=== PATIENT | female | born 2000 | race Hispanic/Latino ===

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

== ENCOUNTER 2020-11-13 02:52 | Emergency (ER) | payer MEDICAID ==
[2020-11-13] MEDS ORDERED: ACETAMINOPHEN 325 MG TAB PO PRN (04:02)
[2020-11-13] MEDS ORDERED: MAGNESIUM HYDROXIDE (MOM) ORAL LIQD UDC PO PRN (04:02)
[2020-11-13] MEDS ORDERED: ALUM-MAG HYDROXIDE-SIMETHICONE 200-200-20MG/5ML ORAL LIQD 30 ML PO PRN (04:02)
[2020-11-13] MEDS ORDERED: traZODone 50 MG TAB PO ONE (04:04)
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
[2020-11-13 04:16] LABS: Bilirubin,Urine NEG (Negative); Blood,Urine NEG (Negative); Color,Urine Yellow (Yellow); Mucus,Urine 1+ /HPF; Protein,Urine <15 mg/dL mg/dL (Negative); Urobilinogen,Urine < 2.0 mg/dL (<2.0)
[2020-11-13 04:22] LABS: Amphetamine Screen,Urine Negative; Cocaine Screen,Urine Negative; Methadone Screen,Urine Negative; Opiate Screen,Urine Negative
[2020-11-13 04:43] LABS: Basophils # (Auto) 0.1 K/mm3 (0.0-0.1); Basophils % (Auto) 0.6 % (0.0-1.8); Eosinophils # (Auto) 0.1 K/mm3 (0.0-0.4); Eosinophils % (Auto) 1.1 % (0.0-4.3); Hematocrit 37.7 % (30.3-42.9); Hemoglobin 12.8 gm/dl (10.1-14.3); Lymphocytes # (Auto) 3.1 K/mm3 (1.2-5.4); Lymphocytes % (Auto) 31.8 % (13.4-35.0); Mean Corpuscular HGB Conc 34 % (30-34); Mean Corpuscular Volume 86 fl (79-97); Monocytes % (Auto) 10.6 % (0.0-7.3); Platelet Count 233 K/mm3 (140-440); Red Blood Count 4.39 M/mm3 (3.65-5.03)
[2020-11-13 04:49] LABS: Benzodiazepines Screen,Urine Positive; Cannabinoid Screen,Urine Positive
[2020-11-13 05:01] LABS: Blood Urea Nitrogen 12 mg/dL (7-17); Calcium 8.6 mg/dL (8.4-10.2); Hemolysis Index 0
[2020-11-13 05:02] LABS: BUN/Creatinine Ratio 24
[2020-11-13 07:43] VITALS: BP 104/64
--- NOTE | 2020-11-13 07:49 | Consultation ---
History of Present Illness - Reason for Consult Consult date: 11/13/20 Reason for consult: SI - History of Present Psychiatric Illness Omayra Schulz is a 19y/o female patient who states she feels like she is going crazy. She says she's suicidal and want's to drown herself. The patient says she does "meth, crack, cocaine and weed. pretty much all of her life." She also verbalizes hearing voices telling her that she's "no good, people are out to get her, and do things to myself." She says she does not sleep well. She denies being on any psych medications. PAST PSYCHIATRIC HISTORY: Diagnoses: Depression Suicide attempts or Self-harm behavior: Yes Prior psychiatric hospitalizations: Denies Substance Abuse history: meth, crack, cocaine, THC Previous psychiatric medications tried: valium Outpatient treatment: yes PAST MEDICAL HISTORY: None reported or document Family Psychiatric History: None reported or documented SOCIAL HISTORY Marital Status: Single Living Arrangements: with a roommate Employment Status: Employed Access to guns/weapons: denies Education: History of Abuse: denies Legal History: denies REVIEW OF SYSTEMS Constitutional: Negative for weight loss ENT: Negative for stridor Respiratory: Negative for cough or hemoptysis All other systems reviewed and are negative MENTAL STATUS EXAMINATION General Appearance and Behavior: Age appropriate, good hygiene, wearing appropriate clothes, calm and cooperative polite with questioning. Cooperation: engaged Psychomotor Behavior: Psychomotor normal Mood: "depressed" Affect and affective range: congruent with stated mood Thought Process: goal directed Thought Content: depression, SI, hallucinations Speech: Normal volume, Regular rate and rhythm, Suicidal Ideation: Yes Homicidal Ideation: Denies Hallucinations: Auditory Delusions: None elicited Impulse Control: Unimpaired Insight and Judgment: Limited insight and poor judgment Memory: Limited Attention: attentive Orientation: alert and oriented Assessment and Plan (1) Major Depressive Disorder Current Visit: Yes Status: Acute Treatment Plan 1013 Seroquel 25mg po BID Zoloft 25mg po daily medical: per primary Disposition: Recommend acute psychiatric inpatient treatment Will follow. Thanks Case staffed with Dr. Chung Medications and Allergies Allergies Allergy/AdvReac Type Severity Reaction Status Date / Time No Known Allergies Allergy Verified 11/13/20 03:40 Home Medications Medication Instructions Recorded Confirmed Last Taken Type Brompheniramine/Pseudoephed/Dm 10 ml PO Q12H PRN #100 ml 04/15/15 Unknown Rx [Bromfed Dm Cough Syrup] Fluticasone [Flonase] 1 spray NS QDAY #1 bottle 04/15/15 Unknown Rx Diphenhydramine HCl [Benadryl GEL] 118 ml TP TID #1 gel..ml. 05/18/15 Unknown Rx Ibuprofen [Motrin 600 MG tab] 600 mg PO Q8H PRN #30 tablet 06/21/16 Unknown Rx cephALEXin [Keflex] 500 mg PO BID #20 capsule 06/21/16 Unknown Rx Active Meds: Active Medications Acetaminophen (Acetaminophen 325 Mg Tab) 650 mg PO Q4HR PRN PRN Reason: Pain MILD(1-3)/Fever >100.5/ARMANDO Al Hydrox/Mg Hydrox/Simethicone (Alum-Mag Hydroxide-Simethicone [phone]/5ml Oral Liqd 30 Ml) 30 ml PO Q4HR PRN PRN Reason: Indigestion Magnesium Hydroxide (Magnesium Hydroxide (Mom) Oral Liqd Udc) 30 ml PO Q12HR PRN PRN Reason: Constipation Mental Status Exam - Vital signs Last Vital Signs Temp 97.9 F 11/13/20 07:40 Pulse 82 11/13/20 07:40 Resp 18 11/13/20 07:40 BP 104/64 11/13/20 07:40 Pulse Ox 100 11/13/20 07:40 Results Result Diagrams: 11/13/20 04:13 11/13/20 04:13 Abnormal lab results 11/13/20 11/13/20 11/13/20 Range/Units 04:13 04:13 04:13 [place] % (Auto) 10.6 H (0.0-7.3) % [place] # (Auto) 1.0 H (0.0-0.8) K/mm3 Creatinine 0.5 L (0.6-1.2) mg/dL Salicylates < 0.3 L (2.8-20.0) mg/dL Acetaminophen (10.0-30.0) ug/mL 11/13/20 Range/Units 04:13 [place] % (Auto) (0.0-7.3) % [place] # (Auto) (0.0-0.8) K/mm3 Creatinine (0.6-1.2) mg/dL Salicylates (2.8-20.0) mg/dL Acetaminophen 5.0 L (10.0-30.0) ug/mL All other labs normal.
[2020-11-13] MEDS ORDERED: SERTRALINE 25 MG TAB PO SCH (10:00)
[2020-11-13] MEDS ORDERED: QUEtiapine 25 MG TAB PO SCH (10:00)
== END 2020-11-13 12:39 ==
LOC: ED 02:52
DX: F32.9 Major depressive disorder, single episode, unspecified (principal); R45.851 Suicidal ideations; Z20.822 Contact with and (suspected) exposure to COVID-19; F10.20 Alcohol dependence, uncomplicated; F12.929 Cannabis use, unspecified with intoxication, unspecified
CPT/HCPCS: 36415; 80048; 80307; 81001; 84703; 85025; 99285; U0003; 80320; G0480

== ENCOUNTER 2020-12-26 14:59 | Emergency (ER) | payer MEDICAID ==
--- NOTE | 2020-12-26 15:54 | Event Note ---
ED Screening Note Date of service: 12/26/20 Time: 15:53 ED Screening Note: Patient brought in by boyfriend for medical clearance for anchor Boyfriend is not present during exam Patient is nonverbal and unable to give any information This initial assessment/diagnostic orders/clinical plan/treatment(s) is/are subject to change based on patients health status, clinical progression and re- assessment by fellow clinical providers in the ED. Further treatment and workup at subsequent clinical providers discretion. Patient/guardian urged not to elope from the ED as their condition may be serious if not clinically assessed and managed. Initial orders include: Labs
[2020-12-26 16:39] LABS: Basophils % (Auto) 0.3 % (0.0-1.8); Hematocrit 38.5 % (30.3-42.9); Hemoglobin 13.2 gm/dl (10.1-14.3); Lymphocytes # (Auto) 2.1 K/mm3 (1.2-5.4); Mean Corpuscular HGB Conc 34 % (30-34); Mean Corpuscular Volume 85 fl (79-97); Monocytes # (Auto) 0.9 K/mm3 (0.0-0.8); Monocytes % (Auto) 8.2 % (0.0-7.3); Platelet Count 293 K/mm3 (140-440); Red Blood Count 4.51 M/mm3 (3.65-5.03); Red Cell Distribution Width 14.5 % (13.2-15.2)
[2020-12-26 16:40] LABS: Alanine Aminotransferase 23 units/L (7-56); Albumin 4.8 g/dL (3.9-5); Blood Urea Nitrogen 6 mg/dL (7-17); Calcium 9.3 mg/dL (8.4-10.2); Hemolysis Index 11
[2020-12-26] MEDS ORDERED: diphenhydrAMINE 25 MG CAP PO ONE (16:41)
[2020-12-26 16:43] LABS: BUN/Creatinine Ratio 15
[2020-12-26 17:48] LABS: Bilirubin,Urine NEG (Negative); Blood,Urine NEG (Negative); Color,Urine Yellow (Yellow); Mucus,Urine FEW /HPF; Protein,Urine <15 mg/dL mg/dL (Negative); Urobilinogen,Urine < 2.0 mg/dL (<2.0)
[2020-12-26 17:50] LABS: Amphetamine Screen,Urine PRESUMPTIVE NEGATIVE; Benzodiazepines Screen,Urine PRESUMPTIVE NEGATIVE; Cannabinoid Screen,Urine PRESUMPTIVE NEGATIVE; Cocaine Screen,Urine PRESUMPTIVE NEGATIVE; Methadone Screen,Urine PRESUMPTIVE NEGATIVE; Opiate Screen,Urine PRESUMPTIVE NEGATIVE
--- NOTE | 2020-12-26 18:58 | Emergency Department Report ---
ED Psych HPI - General Chief Complaint: Medical Clearance Stated Complaint: MEDICAL CLEARANCE/POSS OVERDOSE Time Seen by Provider: 12/26/20 16:23 Source: patient Mode of arrival: Ambulatory - History of Present Illness Initial Comments: Patient is a 20-year-old female who is presenting with possible overdose. Patient currently lives in a [facility]. She was recently placed on Haldol and benztropine at [facility]. Since that time she has been having some abnormal behaviors. Patient states she feels very anxious. Patient noted to be drooling today with abnormal behavior was sent to the emergency department for medical clearance. She is very slow to respond to questions but she is not having any auditory or visual hallucinations. - Related Data Previous Rx's Medication Instructions Recorded Last Taken Type Brompheniramine/Pseudoephed/Dm 10 ml PO Q12H PRN #100 ml 04/15/15 Unknown Rx [Bromfed Dm Cough Syrup] Fluticasone [Flonase] 1 spray NS QDAY #1 bottle 04/15/15 Unknown Rx Diphenhydramine HCl [Benadryl GEL] 118 ml TP TID #1 gel..ml. 05/18/15 Unknown Rx Ibuprofen [Motrin 600 MG tab] 600 mg PO Q8H PRN #30 tablet 06/21/16 Unknown Rx cephALEXin [Keflex] 500 mg PO BID #20 capsule 06/21/16 Unknown Rx Allergies Allergy/AdvReac Type Severity Reaction Status Date / Time No Known Allergies Allergy Verified 11/13/20 03:40 ED Review of Systems ROS: Stated complaint: MEDICAL CLEARANCE/POSS OVERDOSE Other details as noted in HPI Comment: All other systems reviewed and negative ED Past Medical Hx - Past Medical History Previous Medical History?: Yes Additional medical history: ALLERGIES - Surgical History Past Surgical History?: No - Social History Smoking Status: Never Smoker Substance Use Type: None - Medications Home Medications: Home Medications Medication Instructions Recorded Confirmed Last Taken Type Brompheniramine/Pseudoephed/Dm 10 ml PO Q12H PRN #100 ml 04/15/15 Unknown Rx [Bromfed Dm Cough Syrup] Fluticasone [Flonase] 1 spray NS QDAY #1 bottle 04/15/15 Unknown Rx Diphenhydramine HCl [Benadryl GEL] 118 ml TP TID #1 gel..ml. 05/18/15 Unknown Rx Ibuprofen [Motrin 600 MG tab] 600 mg PO Q8H PRN #30 tablet 06/21/16 Unknown Rx cephALEXin [Keflex] 500 mg PO BID #20 capsule 06/21/16 Unknown Rx ED Physical Exam - General Limitations: No Limitations General appearance: alert, anxious (Patient is allowing spit to come from her mouth however she is able to swallow and has no respiratory distress. Did witness her drinking water and eating.) - Head Head exam: Present: atraumatic, normocephalic - Eye Eye exam: Present: normal appearance, PERRL, EOMI - ENT ENT exam: Present: mucous membranes moist - Neck Neck exam: Present: normal inspection - Respiratory Respiratory exam: Present: normal lung sounds bilaterally. Absent: respiratory distress, wheezes, rales, rhonchi - Cardiovascular Cardiovascular Exam: Present: regular rate, normal rhythm, normal heart sounds. Absent: systolic murmur, diastolic murmur, rubs, gallop - GI/Abdominal GI/Abdominal exam: Present: soft, normal bowel sounds. Absent: distended, tenderness, guarding, rebound - Extremities Exam Extremities exam: Present: normal inspection - Back Exam Back exam: Present: normal inspection - Neurological Exam Neurological exam: Present: alert, oriented X3 (Slow to respond to questions) - Psychiatric Psychiatric exam: Present: anxious - Skin Skin exam: Present: warm, dry, intact, normal color. Absent: rash ED Course Vital Signs 12/26/20 12/26/20 12/26/20 15:06 16:13 16:40 Temperature 97.4 F L 98 F Pulse Rate 108 H 80 Respiratory 16 20 Rate Blood Pressure 135/86 Blood Pressure 118/76 [Right] O2 Sat by Pulse 97 97 97 Oximetry 12/26/20 12/27/20 20:39 02:39 Temperature 97.6 F 99.0 F Pulse Rate 108 H 99 H Respiratory 18 18 Rate Blood Pressure Blood Pressure 124/76 133/76 [Right] O2 Sat by Pulse 97 98 Oximetry - Reevaluation(s) Reevaluation #1: 12/26/20 19:19 Patient's been medically cleared ED Medical Decision Making - Lab Data Result diagrams: 12/26/20 15:58 12/26/20 15:58 Lab Results 12/26/20 12/26/20 12/26/20 Range/Units 15:58 15:58 15:58 WBC 10.8 (4.5-11.0) K/mm3 RBC 4.51 (3.65-5.03) M/mm3 Hgb 13.2 (10.1-14.3) gm/dl Hct 38.5 (30.3-42.9) % MCV 85 (79-97) fl MCH 29 (28-32) pg MCHC 34 (30-34) % RDW 14.5 (13.2-15.2) % Plt Count 293 (140-440) K/mm3 Lymph % (Auto) 19.0 (13.4-35.0) % [place] % (Auto) 8.2 H (0.0-7.3) % Eos % (Auto) 0.0 (0.0-4.3) % Baso % (Auto) 0.3 (0.0-1.8) % Lymph # (Auto) 2.1 (1.2-5.4) K/mm3 [place] # (Auto) 0.9 H (0.0-0.8) K/mm3 Eos # (Auto) 0.0 (0.0-0.4) K/mm3 Baso # (Auto) 0.0 (0.0-0.1) K/mm3 Seg Neutrophils % 72.5 H (40.0-70.0) % Seg Neutrophils # 7.8 H (1.8-7.7) K/mm3 Sodium 138 (137-145) mmol/L Potassium 3.9 (3.6-5.0) mmol/L Chloride 102.3 (98-107) mmol/L Carbon Dioxide 21 L (22-30) mmol/L Anion Gap 19 mmol/L BUN 6 L (7-17) mg/dL Creatinine 0.4 L (0.6-1.2) mg/dL Estimated GFR > 60 ml/min BUN/Creatinine Ratio 15 % Glucose 98 (65-100) mg/dL Calcium 9.3 (8.4-10.2) mg/dL Total Bilirubin 0.50 (0.1-1.2) mg/dL AST 26 (5-40) units/L ALT 23 (7-56) units/L Alkaline Phosphatase 51 (35-129) units/L Total Protein 8.2 (6.3-8.2) g/dL Albumin 4.8 (3.9-5) g/dL Albumin/Globulin Ratio 1.4 % HCG, Qual (Negative) Urine Color (Yellow) Urine Turbidity (Clear) Urine pH (5.0-7.0) Ur Specific [place] (1.003-1.030) Urine Protein (Negative) mg/dL Urine Glucose (UA) (Negative) mg/dL Urine Ketones (Negative) mg/dL Urine Blood (Negative) Urine Nitrite (Negative) Urine Bilirubin (Negative) Urine Urobilinogen (<2.0) mg/dL Ur Leukocyte Esterase (Negative) Urine WBC (Auto) (0.0-6.0) /HPF Urine RBC (Auto) (0.0-6.0) /HPF U Epithel Cells (Auto) (0-13.0) /HPF Urine Mucus /HPF Salicylates < 0.3 L (2.8-20.0) mg/dL Urine Opiates Screen Urine Methadone Screen Acetaminophen (10.0-30.0) ug/mL Ur Barbiturates Screen Ur Phencyclidine Scrn Ur Amphetamines Screen U Benzodiazepines Scrn Urine Cocaine Screen U Marijuana (THC) Screen Drugs of Abuse Note Plasma/Serum Alcohol (0-0.07) % 12/26/20 12/26/20 12/26/20 Range/Units 15:58 15:58 15:58 WBC (4.5-11.0) K/mm3 RBC (3.65-5.03) M/mm3 Hgb (10.1-14.3) gm/dl Hct (30.3-42.9) % MCV (79-97) fl MCH (28-32) pg MCHC (30-34) % RDW (13.2-15.2) % Plt Count (140-440) K/mm3 Lymph % (Auto) (13.4-35.0) % [place] % (Auto) (0.0-7.3) % Eos % (Auto) (0.0-4.3) % Baso % (Auto) (0.0-1.8) % Lymph # (Auto) (1.2-5.4) K/mm3 [place] # (Auto) (0.0-0.8) K/mm3 Eos # (Auto) (0.0-0.4) K/mm3 Baso # (Auto) (0.0-0.1) K/mm3 Seg Neutrophils % (40.0-70.0) % Seg Neutrophils # (1.8-7.7) K/mm3 Sodium (137-145) mmol/L Potassium (3.6-5.0) mmol/L Chloride (98-107) mmol/L Carbon Dioxide (22-30) mmol/L Anion Gap mmol/L BUN (7-17) mg/dL Creatinine (0.6-1.2) mg/dL Estimated GFR ml/min BUN/Creatinine Ratio % Glucose (65-100) mg/dL Calcium (8.4-10.2) mg/dL Total Bilirubin (0.1-1.2) mg/dL AST (5-40) units/L ALT (7-56) units/L Alkaline Phosphatase (35-129) units/L Total Protein (6.3-8.2) g/dL Albumin (3.9-5) g/dL Albumin/Globulin Ratio % HCG, Qual Negative (Negative) Urine Color (Yellow) Urine Turbidity (Clear) Urine pH (5.0-7.0) Ur Specific [place] (1.003-1.030) Urine Protein (Negative) mg/dL Urine Glucose (UA) (Negative) mg/dL Urine Ketones (Negative) mg/dL Urine Blood (Negative) Urine Nitrite (Negative) Urine Bilirubin (Negative) Urine Urobilinogen (<2.0) mg/dL Ur Leukocyte Esterase (Negative) Urine WBC (Auto) (0.0-6.0) /HPF Urine RBC (Auto) (0.0-6.0) /HPF U Epithel Cells (Auto) (0-13.0) /HPF Urine Mucus /HPF Salicylates (2.8-20.0) mg/dL Urine Opiates Screen Urine Methadone Screen Acetaminophen 5.0 L (10.0-30.0) ug/mL Ur Barbiturates Screen Ur Phencyclidine Scrn Ur Amphetamines Screen U Benzodiazepines Scrn Urine Cocaine Screen U Marijuana (THC) Screen Drugs of Abuse Note Plasma/Serum Alcohol < 0.01 (0-0.07) % 12/26/20 12/26/20 Range/Units Unknown Unknown WBC (4.5-11.0) K/mm3 RBC (3.65-5.03) M/mm3 Hgb (10.1-14.3) gm/dl Hct (30.3-42.9) % MCV (79-97) fl MCH (28-32) pg MCHC (30-34) % RDW (13.2-15.2) % Plt Count (140-440) K/mm3 Lymph % (Auto) (13.4-35.0) % [place] % (Auto) (0.0-7.3) % Eos % (Auto) (0.0-4.3) % Baso % (Auto) (0.0-1.8) % Lymph # (Auto) (1.2-5.4) K/mm3 [place] # (Auto) (0.0-0.8) K/mm3 Eos # (Auto) (0.0-0.4) K/mm3 Baso # (Auto) (0.0-0.1) K/mm3 Seg Neutrophils % (40.0-70.0) % Seg Neutrophils # (1.8-7.7) K/mm3 Sodium (137-145) mmol/L Potassium (3.6-5.0) mmol/L Chloride (98-107) mmol/L Carbon Dioxide (22-30) mmol/L Anion Gap mmol/L BUN (7-17) mg/dL Creatinine (0.6-1.2) mg/dL Estimated GFR ml/min BUN/Creatinine Ratio % Glucose (65-100) mg/dL Calcium (8.4-10.2) mg/dL Total Bilirubin (0.1-1.2) mg/dL AST (5-40) units/L ALT (7-56) units/L Alkaline Phosphatase (35-129) units/L Total Protein (6.3-8.2) g/dL Albumin (3.9-5) g/dL Albumin/Globulin Ratio % HCG, Qual (Negative) Urine Color Yellow (Yellow) Urine Turbidity Clear (Clear) Urine pH 6.0 (5.0-7.0) Ur Specific [place] 1.013 (1.003-1.030) Urine Protein <15 mg/dl (Negative) mg/dL Urine Glucose (UA) Neg (Negative) mg/dL Urine Ketones 20 (Negative) mg/dL Urine Blood Neg (Negative) Urine Nitrite Neg (Negative) Urine Bilirubin Neg (Negative) Urine Urobilinogen < 2.0 (<2.0) mg/dL Ur Leukocyte Esterase Tr (Negative) Urine WBC (Auto) 1.0 (0.0-6.0) /HPF Urine RBC (Auto) 2.0 (0.0-6.0) /HPF U Epithel Cells (Auto) 3.0 (0-13.0) /HPF Urine Mucus Few /HPF Salicylates (2.8-20.0) mg/dL Urine Opiates Screen Presumptive negative Urine Methadone Screen Presumptive negative Acetaminophen (10.0-30.0) ug/mL Ur Barbiturates Screen Presumptive negative Ur Phencyclidine Scrn Presumptive negative Ur Amphetamines Screen Presumptive negative U Benzodiazepines Scrn Presumptive negative Urine Cocaine Screen Presumptive negative U Marijuana (THC) Screen Presumptive negative Drugs of Abuse Note Disclamer Plasma/Serum Alcohol (0-0.07) % - EKG Data -: EKG Interpreted by Tn - EKG Data 12/26/20 18:58 EKG shows normal sinus rhythm rate of 96. Roundup normal intervals normal no ST segment elevation or depressions. Time interpretation 4025 Critical care attestation.: If time is entered above; I have spent that time in minutes in the direct care of this critically ill patient, excluding procedure time. ED Disposition Clinical Impression: Depression, Anxiety, Abnormal behavior Disposition: [address] [place] [address] Is pt being admited?: No Does the pt Need Aspirin: No Condition: Stable Referrals: PRIMARY CARE, [Primary Care Provider] - 3-5 Days
[2020-12-26] MEDS ORDERED: LORazepam 1 MG TAB PO ONE (20:44)
[2020-12-27 03:06] VITALS: BP 133/76
--- NOTE | 2020-12-27 08:34 | Electrocardiograph Report ---
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
[2020-12-27] MEDS ORDERED: LORazepam 2 MG/ML VIAL IM STA (10:43)
--- NOTE | 2020-12-27 11:31 | Consultation ---
History of Present Illness - Reason for Consult Consult date: 12/27/20 Reason for consult: medical clearance/OD - History of Present Psychiatric Illness Per ER Note: Patient is a 20-year-old female who is presenting with possible overdose. Patient currently lives in a intermediate. She was recently placed on Haldol and benztropine at [facility]. Since that time she has been having some abnormal behaviors. Patient states she feels very anxious. Patient noted to be drooling today with abnormal behavior was sent to the emergency department for medical clearance. She is very slow to respond to questions but she is not having any auditory or visual hallucinations. Omayra Schulz is a 20y/o female patient I evaluated today. SHe is a/o x 3. She is crying and is very anxious. She is shaking. She has poor boundaries. The patient says she had thoughts of suicide. She says "I wanted to kill myself but I just said that because my PHP wouldn't let me in the back room." She says "my anxiety is really bad." She asks for something for anxiety. She's walking up to me and I have to ask her to step back more than once. The patient is crying and telling me "I just want to go home. I just want to go home." She denies hallucinations. PAST PSYCHIATRIC HISTORY: Diagnoses: anxiety Suicide attempts or Self-harm behavior: Yes Prior psychiatric hospitalizations: Yes Substance Abuse history: Denies Previous psychiatric medications tried: haldol, cogentin Outpatient treatment: Yes PAST MEDICAL HISTORY: None reported Family Psychiatric History: None reported or documented SOCIAL HISTORY Marital Status: Single Living Arrangements: independent living program Employment Status: disabled Access to guns/weapons: Denies Education: History of Abuse: Denies Legal History: Denies REVIEW OF SYSTEMS Constitutional: Negative for weight loss ENT: Negative for stridor Respiratory: Negative for cough or hemoptysis All other systems reviewed and are negative MENTAL STATUS EXAMINATION General Appearance and Behavior: Age appropriate, good hygiene, wearing appropriate clothes, cooperative polite with questioning, anxious. Cooperation: cooperative Psychomotor Behavior: Psychomotor agitation, shaking Mood: anxious Affect and affective range: Congruent with stated mood, tearful Thought Process: circumstantial Thought Content: None Speech: normal tone and pace Suicidal Ideation: Yes initially, denies at present Homicidal Ideation: Denied hallucination: Denies Delusions: None elicited Impulse Control: Impaired Insight and Judgment: Limited Memory: Limited Attention: attentive Orientation: Alert and oriented Assessment Mood Disorder Generalized Anxiety Disorder RECOMMENDATIONS 1013 Haldol 0.5mg po BID Cogentin 0.5mg po BID Vistaril 25mg po BID Lorazepam 1mg IM q4h prn anxiety Risks, benefits and alternatives of medications discussed with the patient, questions answered and consent obtained from patient. PSYCHOTHERAPY: Supportive psychotherapy provided MEDICAL: Per primary team DELIRIUM PRECAUTIONS: Please re-orient patient frequently, keep lights on during the day, and minimize benzodiazepines and opiates as these medications could worsen patient's confusion. 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 Please contact with any questions and/or concerns. Case staffed with Dr. Chung Medications and Allergies Allergies Allergy/AdvReac Type Severity Reaction Status Date / Time No Known Allergies Allergy Verified 11/13/20 03:40 Home Medications Medication Instructions Recorded Confirmed Last Taken Type Brompheniramine/Pseudoephed/Dm 10 ml PO Q12H PRN #100 ml 04/15/15 Unknown Rx [Bromfed Dm Cough Syrup] Fluticasone [Flonase] 1 spray NS QDAY #1 bottle 04/15/15 Unknown Rx Diphenhydramine HCl [Benadryl GEL] 118 ml TP TID #1 gel..ml. 05/18/15 Unknown Rx Ibuprofen [Motrin 600 MG tab] 600 mg PO Q8H PRN #30 tablet 06/21/16 Unknown Rx cephALEXin [Keflex] 500 mg PO BID #20 capsule 06/21/16 Unknown Rx Mental Status Exam - Vital signs Last Vital Signs Temp 99.0 F 12/27/20 02:39 Pulse 99 H 12/27/20 02:39 Resp 18 12/27/20 02:39 BP 133/76 12/27/20 02:39 Pulse Ox 98 12/27/20 02:39 Results Result Diagrams: 12/26/20 15:58 12/26/20 15:58 Abnormal lab results 12/26/20 12/26/20 12/26/20 Range/Units 15:58 15:58 15:58 [place] % (Auto) 8.2 H (0.0-7.3) % [place] # (Auto) 0.9 H (0.0-0.8) K/mm3 Seg Neutrophils % 72.5 H (40.0-70.0) % Seg Neutrophils # 7.8 H (1.8-7.7) K/mm3 Carbon Dioxide 21 L (22-30) mmol/L BUN 6 L (7-17) mg/dL Creatinine 0.4 L (0.6-1.2) mg/dL Salicylates < 0.3 L (2.8-20.0) mg/dL Acetaminophen (10.0-30.0) ug/mL 12/26/20 Range/Units 15:58 [place] % (Auto) (0.0-7.3) % [place] # (Auto) (0.0-0.8) K/mm3 Seg Neutrophils % (40.0-70.0) % Seg Neutrophils # (1.8-7.7) K/mm3 Carbon Dioxide (22-30) mmol/L BUN (7-17) mg/dL Creatinine (0.6-1.2) mg/dL Salicylates (2.8-20.0) mg/dL Acetaminophen 5.0 L (10.0-30.0) ug/mL All other labs normal.
[2020-12-27] MEDS ORDERED: LORazepam 2 MG/ML VIAL IM PRN (11:39)
[2020-12-27] MEDS ORDERED: HALOPERIDOL 1 MG TAB PO SCH (12:00)
[2020-12-27] MEDS ORDERED: BENZTROPINE 0.5 MG TAB PO SCH (12:00)
[2020-12-27] MEDS ORDERED: hydrOXYzine PAMOATE 25 MG CAP PO SCH (12:00)
--- NOTE | 2020-12-27 13:40 | Event Note ---
Date: 12/27/20 20-year-old female with reported history of schizophrenia brought from [facility] due to altered mental status and abnormal behavior including drooling and holding of arms. There was concern for oversedation by the patient's psychiatric medications. She was seen by my colleague and was medically cleared for psychiatric evaluation and placement. When I saw the patient this morning, she was crying and hysterical but drooling and holding her hands up in a bizarre manner. She was able to answer some questions but kept saying that she is extremely anxious and that she feels her anxiety is causing her drooling and bizarre stance and behavior. Given that there is no documentation of this kind of bizarre behavior in the past I have ordered CT of the head. I also ordered IM Ativan and plan to reassess the patient after Ativan to evaluate her behaviors resolved. On repeat assessment after Ativan, the patient is no longer crying and is now smiling. She is no longer drooling and is cooperative with an exam which reveals a nonfocal neurologic exam. Cranial nerves are intact. Motor and sensory function is intact throughout. Normal speech. Normal gait. CT of the head reveal no acute abnormalities. The patient was transferred to an acute psychiatric facility for further treatment.
--- NOTE | 2020-12-27 14:34 | Cat Scan Report ---
CT BRAIN: 12/27/2020 INDICATION / CLINICAL INFORMATION: abnormal behavior, drooling. COMPARISON: None available. FINDINGS: BRAIN/INTRACRANIAL STRUCTURES: Unenhanced CT images of the brain demonstrate no evidence of acute int racranial abnormality. Ventricles and sulci are normal in size and shape. There is no evidence of hemorrhage or mass. There are no abnormal extra-axial fluid collections. EXTRACRANIAL STRUCTURES: Unremarkable. IMPRESSION: No acute abnormality. All CT scans at this location are performed using dose reduction to ALARA by means of automated expos ure control. Signer Name: Tamir Singh MD Signed: 12/27/2020 2:30 PM Workstation Name: [id number]
== END 2020-12-27 15:03 ==
LOC: ED 14:59
DX: F32.9 Major depressive disorder, single episode, unspecified (principal); F41.9 Anxiety disorder, unspecified; Z20.822 Contact with and (suspected) exposure to COVID-19
CPT/HCPCS: 36415; 70450; 80053; 80307; 81001; 84703; 85025; 93005; 96372; 99284; J2060; U0003; 80320; G0480